=== PATIENT | female | born 1995 | race Caucasian/White ===

== ENCOUNTER → 2018-02-14 15:54 | Outpatient (CLI) | payer OTHER, MEDICAID, SELFPAY ==
[2018-02-14 17:34] LABS: HCG Quantitative /Beta subunit 11462 mIU/mL
== END ==
PROVIDERS: Visit Provider Obstetrics & Gynecology
DX: N91.2 Amenorrhea, unspecified (principal)
CPT/HCPCS: 36415; 84702

== ENCOUNTER → 2018-02-18 08:45 | Outpatient (CLI) | payer OTHER, MEDICAID, SELFPAY ==
--- NOTE | 2018-02-18 08:47 | DI.US.S_ITS ---
PROCEDURE: US OB >= 14 WEEKS FETUS INDICATIONS: INITIAL SIZING AND DATING OUTSIDE/PRIOR DATING DATA: Last menstrual period (LMP): Unknown LMP-based estimated date of delivery (TED): Unknown First dating scan (date and location): 02/18/18. Estimated date of delivery (TED) from first dating scan: 07/09/18. TECHNIQUE: Real-time scanning was performed of the fetus, with image documentation and biometric measurements. COMPARISON: Merged with [facility], OB REEVALUATION, 01/05/2017, 16:12. Merged with [facility], OB COMPLETE 14WKS OR MORE, 12/01/2016, 14:26. Merged with [facility], OB COMPLETE LESS THAN 14 WKS, 10/12/2016, 12:03. Merged with [facility], OB COMPLETE LESS THAN 14 WKS, 04/28/2016, 16:09. FINDINGS: General: A single living intrauterine gestation is present. Presentation: Cephalic Placenta: Placental position is posterior, without previa. Amniotic fluid index: 11.3 cm, normal range is 5-24 cm. heart rate: 149 beats per minute. Maternal cervical canal: 4.6 cm. biometrics: Biparietal diameter: 4.5 cm, 19 weeks 4 days Head circumference: 16.9 cm, 19 weeks 4 days Abdominal circumference: 14.6 cm, 19 weeks 6 days Femur length: 3.3 cm, 20 weeks 3 days Estimated gestational age from initial scan: not applicable. Composite gestational age from present scan: 19 weeks 6 days Estimated weight: 330 g Measurement variability for biometric dating: +/- 7 days from 14 weeks to 15 weeks 6 days gestation, +/- 10 days from 16 weeks to 21 weeks 6 days gestation, +/- 2 weeks from 22 weeks to 27 weeks 6 days gestation, +/- 3 weeks for 28 weeks gestation or later. weight reference: 4500 g or EFW >90/95% is considered macrosomia or large for gestational age. EFW <10% is small for gestational age. EFW 5% or less is considered intra-uterine growth restriction. Anatomic survey: Neuro: Ventricles are non-dilated at less than 10 mm. Cisterna magna is normal at 3-11 mm. Cerebellum is normal in size and morphology. Nuchal skin fold: Normal at less than 6 mm between 14-21 weeks gestational age. Face: Nose and lips, facial profile are normal. Spine: No evidence for spina bifida. Heart: 4-chambered heart is present, with normal ventricular outflow tracts. Diaphragm: Diaphragm is intact. Stomach: Left-sided stomach is present. Kidneys: No hydronephrosis. Normal is less than 5 mm in 2nd trimester, less than 7 mm in 3rd trimester. Cord: 3-vessel cord has orthotopic insertion. Bladder: Normal in size. Extremities: All 4 extremities identified. IMPRESSION: 1. Single live intrauterine at 19 weeks 6 days (sonographic TED 07/09/18). Please correlate with the clinical dates. 2. No anatomic abnormalities are evident. Dictated by: Landen Kelly M.D. on 02/18/2018 at 10:42 Approved by: Landen Kelly M.D. on 02/18/2018 at 10:46
== END ==
PROVIDERS: PCP Family Medicine; Visit Provider Family Medicine
DX: Z34.92 Encounter for supervision of normal pregnancy, unspecified, second trimester (principal); Z3A.19 19 weeks gestation of pregnancy
CPT/HCPCS: 76811

== ENCOUNTER → 2018-03-02 12:00 | Outpatient (CLI) | payer OTHER, MEDICAID, SELFPAY ==
[2018-03-02 12:29] LABS: Add Manual Diff / Slide Review NO; Basophils Percent Auto 1.1 % (0-2); Eosinophils Percent Auto 0.6 % (2-4); Hematocrit 35.2 % (36-46); Hemoglobin 12.2 g/dL (12.0-16.0); Lymphocytes Percent Auto 20.5 % (25-40); Mean Corpuscular HGB Conc 34.5 % (30-36); Mean Corpuscular Hemoglobin 30.4 PG (26-34); Monocytes Percent Auto 6.7 % (3-14); Neutrophils Absolute Auto 5300 /uL (3000-5900); Neutrophils Percent Auto 71.1 % (50-75); Platelet Count 241 X10^3/uL (150-400); Red Cell Distribution Width 13.7 % (11.6-14.8); White Blood Cell Count 7.5 X10^3/uL (4.5-11.0)
[2018-03-02 20:47] LABS: Hepatitis B Surface Antigen NEGATIVE s/c (NEGATIVE)
[2018-03-02 20:57] LABS: HIV 1 and 2 Antibody NEGATIVE (NEGATIVE); Hep C Virus Ab w/Reflex Quant NEGATIVE s/c (NEGATIVE)
[2018-03-03 13:30] LABS: Varicella IgG Antibody < 135.00 Index (< 135.00)
[2018-03-04 15:09] LABS: HSV 2 IGG AB < 0.90 index (< 0.90); HSV1IGG < 0.90 index (< 0.90)
[2018-03-07 15:25] LABS: Rapid Plasma Reagin NON-REACTIVE
== END ==
PROVIDERS: PCP Family Medicine; Visit Provider Family Medicine
DX: Z34.91 Encounter for supervision of normal pregnancy, unspecified, first trimester (principal)
CPT/HCPCS: 36415; 80055; 86695; 86696; 86703; 86787; 86803; 86850; 86900; 86901; 87086

== ENCOUNTER → 2018-04-14 13:45 | Outpatient (CLI) | payer OTHER, MEDICAID, SELFPAY ==
[2018-04-14 15:04] LABS: Hematocrit 32.2 % (36-46); Hemoglobin 11.3 g/dL (12.0-16.0)
[2018-04-14 16:15] LABS: GTT (PREG) 1 Hour PP 50gm Dose 97 mg/dL (76-139)
== END ==
PROVIDERS: PCP Family Medicine; Visit Provider Family Medicine
DX: Z3A.26 26 weeks gestation of pregnancy (principal)
CPT/HCPCS: 36415; 82950; 85014; 85018

== ENCOUNTER → 2018-06-17 09:19 | Outpatient (CLI) | payer OTHER, MEDICAID, SELFPAY ==
[2018-06-18 14:08] LABS: Strep Grp B PCR NEG for Grp B Strep
== END ==
PROVIDERS: PCP Family Medicine; Visit Provider Family Medicine
DX: Z3A.36 36 weeks gestation of pregnancy (principal)
CPT/HCPCS: 87653

== ENCOUNTER 2018-07-13 09:13 | Outpatient (CLI) | payer OTHER, MEDICAID, SELFPAY ==
--- NOTE | 2018-07-13 09:48 | PM.OBTRLD ---
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 Dating based on second trimester US. NST reactive. Follow up next week as scheduled.
--- NOTE | 2018-07-13 09:51 | P.TNLD_ITS ---
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 Dating based on second trimester US. NST reactive. Follow up next week as scheduled.
== END 2018-07-13 09:50 | disposition home or self-care (01) ==
LOC: LABOR 09:19 → OB 07-18 15:44
PROVIDERS: PCP Family Medicine; Visit Provider Family Medicine
DX: Z34.83 Encounter for supervision of other normal pregnancy, third trimester (principal); Z3A.40 40 weeks gestation of pregnancy
CPT/HCPCS: 59025; G0378; G0379

== ENCOUNTER 2018-07-18 13:45 | Inpatient (IN) | payer OTHER, MEDICAID, SELFPAY ==
--- NOTE | 2018-07-18 14:42 | PM.OBHP.1 ---
OB HPI Date/Time Date of admission: 07/18/18 Date Patient Seen: 07/18/18 Time Patient Seen: 17:00 History of Present Condition Chief complaint: Labory/Delivery : 3 Para: 1 Estimated Date of Delivery: 07/09/18 Estimated Gestational Age (weeks): 41w2d Narrative: Moira Pierre is a 23 year old . care initiated at 21 weeks. Patient was not aware she was as she was still her first child who was born March 2017. Ultrasound 02/18/18 showed gestational age of 19 weeks six days with TED of 07/09/18. has been uncomplicated. History of Present care: good care, initiated at week # (Twenty-one), number of visits (10) and pounds weight gain (38) Dating criteria: based on 2nd trimester US only Ultrasounds: normal mid trimester US Obstetrical complications: none Medical complications: none Preadmission Labs Blood type: O (+) positive -: Antibody screen: negative, GBS status: negative, HBsAG: negative, HIV: negative, HSV 1: negative, HSV 2: negative and RPR/VDLR: negative -: Chlamydia screen: not detected and Gonorrhea screen: not detected -: Rubella: immune and Varicella: not immune HCT: 35.2 HCAB: negative 1 hr GTT: 97 Prior (ies) History: 2009 SAB 10 weeks D&C 04/10/2017 49 weeks 7.11 lbs female Evaluation Evaluation Baseline heart rate: 150 Variability: Moderate (11-25) monitor accelerations: Present monitor decelerations: Absent Contraction Frequency (minutes): 6 Uterine Contraction Intensity: Moderate Category of Tracing: I Cervical dilation (cm): 4 Cervical effacement (%): 80 station: -1 Comments: AROM clear fluid PFSH Medical History H/O idiopathic seizure (Chronic) Surgical History S/P dilation and curettage (Acute) Social History marital status: unmarried,living together 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) Smoking Status: Former smoker alcohol intake: never substance use type: does not use and marijuana (past use) Meds Home Medications Medication Instructions Recorded Confirmed Type vit-iron fum-folic ac 1 cap PO QDAY #0 03/12/17 07/18/18 History [Mynatal] Allergies Allergy/AdvReac Type Severity Reaction Status Date / Time No Known Drug Allergies Allergy Verified 07/18/18 15:16 Review of Systems Review of Systems All systems reviewed & are unremarkable except as noted in HPI and below Exam Const General: cooperative and healthy appearing [facility] Head: normal to inspection Ears: hearing grossly normal bilaterally Nose: external nose normal Face and sinus: normal facial exam Mouth: oral mucosae normal Teeth and gingiva: dentition normal Eyes General: appearance normal, both eyes and all related structures Neck Neck: normal visual inspection Resp Effort & Inspection: normal respiratory effort Auscultation: clear to auscultation bilaterally Cardio Rate: regular rate Rhythm: regular rhythm Heart Sounds: S1 normal and S2 normal GI Other: Gravid External Female Exam: external appearance normal Estimated Weight (lbs): 8 Neuro General: alert, awake and oriented x3 Extrem General: no pedal edema Objective Labs Result Diagrams: 07/18/18 15:00 Assessment and Plan (1) 41 weeks gestation of : Current visit: Yes Status: Acute 23-year-old at 41 weeks 2 days of in active labor. GBS negative. Plan - Expected management, anticipate - Patient declines all pain medication
[2018-07-18 15:04] LABS: Add Manual Diff / Slide Review NO; Basophils Percent Auto 0.5 % (0-2); Eosinophils Percent Auto 0.5 % (2-4); Hematocrit 34.9 % (36-46); Hemoglobin 11.9 g/dL (12.0-16.0); Lymphocytes Percent Auto 16.7 % (25-40); Mean Corpuscular HGB Conc 34.2 % (30-36); Mean Corpuscular Hemoglobin 28.4 PG (26-34); Mean Corpuscular Volume 82.9 fL (80-100); Monocytes Percent Auto 8.4 % (3-14); Neutrophils Absolute Auto 8100 /uL (3000-5900); Neutrophils Percent Auto 73.9 % (50-75); Platelet Count 237 X10^3/uL (150-400); Red Cell Distribution Width 14.1 % (11.6-14.8); White Blood Cell Count 10.9 X10^3/uL (4.5-11.0)
[2018-07-18 19:26] VITALS: BP 132/67
--- NOTE | 2018-07-18 19:35 | PM.OBPRVD ---
Delivery date: 07/18/18 Intrapartal events: None Delivery augmentation: rupture of membranes Delivery monitor: external FHT Route of delivery: Laceration description: Superficial (left labial) Estimated blood loss (mL): 200 Anesthesia type: None Narrative: VAGINAL DELIVERY NOTE BRIEF HISTORY: Patient is a 23-year-old G3-now-P2 status post spontaneous vaginal delivery at 41+2 weeks gestation on 07/18/18. TED: 07/09/18 Hospital problems: 41 weeks of STAGE I: Labor Labor onset 07/18/18 at 7:00 a.m. Augmentation: AROM with clear fluid at 16:51 Complete: 19:12 Stage I duration: 12 hours and 12 minutes Analgesia for labor: None Comments: heart tones were category 1 throughout stage 1 with intermittent monitoring. STAGE II: Delivery The second stage of labor lasted 10 minutes. Spontaneous vaginal delivery occurred at 19:22 on 07/18/18. was vertex and EVANGELINA with a nuchal cord which was reduced. Infant was immediately placed on mother's chest. Apgars were 8 and 9. Cord was clamped and cut after 1 minute delay. STAGE III: Placenta/Cord The third stage of labor lasted 6 minutes. Placenta delivered after active management and appeared intact with a three-vessel cord at 19:28. There was one small superficial left labial laceration which was not repaired. Fundus was firm at umbilicus. Hemostasis achieved. IM pitocin bolus given after delivery of placenta. EBL: 200 mL. Needle and sponge counts were correct. The vagina was inspected and no items were left in situ.
--- NOTE | 2018-07-19 09:07 | PM.OBDS.1 ---
Discharge Providers Date of admission: 07/18/18 13:45 Primary care physician: Aleida Gamble DO Discharge provider: Aleida Gamble DO Discharge Date: 07/19/18 Summary Date Patient Seen: 07/19/18 Time Patient Seen: 07:44 Hospital Course: 23-year-old G3-now-P2 1 day after spontaneous vaginal delivery of a viable male . and delivery were uncomplicated. course has been unremarkable. Patient is eating, ambulating and voiding without difficulty. Bleeding is reportedly moderate. Pain well controlled without medication. going very well. Patient will follow up with Dr. Gamble in 6 weeks. Call for fevers, severe pain or bleeding through more than a pad an hour. Exam Temperature 99.3? blood pressure 135/83 pulse 91 respirations 16 General: Awake and alert, no acute distress. HEENT: NCAT, EOMI, moist oral mucosa CV: Regular rate and rhythm, no murmurs, rubs or gallops Lungs: CTAB, no wheezes, rales, or rhonchi Abdomen: Soft, nontender; bowel tones active; uterus firm 1 cm below umbilicus Extremities: Warm, no edema, 2+ pedal pulses bilaterally Discharge Diagnosis (1) 41 weeks gestation of : Status: Acute (2) Spontaneous vaginal delivery: Status: Acute Time Spent with Patient Total time spent providing and/or coordinating discharge services: Objective Labs Result Diagrams: 07/18/18 15:00 Labs: Laboratory Results - last 24 hr 07/18/18 07/18/18 15:00 15:00 WBC 10.9 RBC 4.20 Hgb 11.9 L Hct 34.9 L MCV 82.9 MCH 28.4 MCHC 34.2 RDW 14.1 Plt Count 237 Neut % (Auto) 73.9 Lymph % (Auto) 16.7 L Lat[place] % (Auto) 8.4 Eos % (Auto) 0.5 L Baso % (Auto) 0.5 Neut # (Auto) 8100 H Blood Type O Positive Antibody Screen Negative Discharge Plan Discharge Plan Patient Disposition: Home Discharge Med Rec/Prescriptions Prescriptions: No Action vit-iron fum-folic ac [Mynatal] 1 EACH capsule 1 cap PO QDAY Qty: 0 RF: 0 Follow up/Referrals: Aleida Gamble DO [Primary Care Provider] - 6 Weeks Discharge Data Primary Care Provider: Aleida Gamble Attending Provider: Aleida Gamble Admit Date/Time: 07/18/18 13:45
[2018-07-19 11:28] VITALS: BP 127/53; PULSE 73; TEMP 36.3
== END 2018-07-19 12:45 | disposition home or self-care (01) | DRG 560 ==
PROVIDERS: Admitting Provider Family Medicine; PCP Family Medicine; Visit Provider Family Medicine
DX: O69.81X0 Labor and delivery complicated by cord around neck, without compression, not applicable or unspecified (principal); Z3A.41 41 weeks gestation of pregnancy; Z37.0 Single live birth
CPT/HCPCS: 59050; 59409; 85025; 86850; 86900; 86901; G0379

== ENCOUNTER 2020-10-07 08:00 | Emergency (ER) | payer OTHER, MEDICAID, SELFPAY ==
[2020-10-07 08:09] VITALS: BP 140/70; PULSE 90; RESP 16; TEMP 37.3; O2SAT 100; BMI 24.3
--- NOTE | 2020-10-07 08:14 | ED.FEMALEGU ---
HPI - Female Genitourinary General Chief complaint: Urogenital-Female Stated complaint: PEEING BLOOD,CRAMPING Time Seen by Provider: 10/07/20 08:00 Source: patient Mode of arrival: Ambulatory Limitations: no limitations History of Present Illness HPI Narrative: 25-year-old female nonsmoker with noncontributory medical history presents with a chief complaint of relatively painless hematuria, frequency and urgency with some suprapubic cramping for the past 24 hours. She feels slightly nauseous but denies any vomiting. She has had no fever chills but feels a bit under the weather. Her last period was the beginning of the month and she denies any chance of being as her is fixed. She has had no runny nose sore throat, no chest pain or shortness of breath and is otherwise well and free of complaint. MD Complaint: UTI Onset (ago): hour(s) Location: suprapubic Severity: mild Quality: Aching and Cramping Duration: constant Relieving factors: none Exacerbating factors: urination Urinary symptoms: Frequency, Hematuria and Urgency Patient : No Related Data Home Medications Medication Instructions Recorded Confirmed vit-iron fum-folic ac 1 cap PO QDAY #0 03/12/17 04/26/20 [Mynatal] Previous Rx's Medication Instructions Recorded norethindrone (contraceptive) 0.35 0.35 mg PO DAILY #84 tab 11/05/ mg tablet cefuroxime axetil 500 mg PO BID #14 tab 10/07/20 Allergies Allergy/AdvReac Type Severity Reaction Status Date / Time No Known Drug Allergies Allergy Verified 10/07/20 08:11 Review of Systems Constitutional Constitutional: Denies chills, Denies fatigue, Denies fever(s), Denies frequent falls, Denies lethargy and Denies weakness Eyes Eyes: Denies change in vision, Denies eye discharge, Denies irritation and Denies loss of vision ENT Ears, Nose, Mouth, and Throat: Denies change in voice, Denies dizziness, Denies neck pain, Denies sore throat and Denies throat swelling Cardiovascular Cardiovascular: Denies chest pain, Denies irregular heart rhythm, Denies lightheadedness, Denies palpitations, Denies dyspnea, Denies dyspnea on exertion and Denies orthopnea Respiratory Respiratory: Denies cough, Denies dyspnea, Denies dyspnea on exertion and Denies wheezing Gastrointestinal Gastrointestinal: Denies abdominal pain, Denies change in bowel habits, Denies diarrhea, Denies nausea and Denies vomiting Genitourinary Genitourinary: Reports hematuria and Reports urinary urgency Genitourinary: Reports hematuria and Reports urinary urgency Musculoskeletal Musculoskeletal: Denies neck pain and Denies numbness Integumentary/Breasts Skin/Breast: Denies pruritus, Denies erythema, Denies rash and Denies wounds Neurologic Neurologic: Denies behavioral changes, Denies confusion, Denies dizziness, Denies frequent falls, Denies loss of vision, Denies numbness and Denies weakness Psychiatric Psychiatric: Denies anxiety, Denies behavioral changes, Denies confusion, Denies depression, Denies homicidal ideation and Denies suicidal ideation Endocrine Endocrine: Denies fatigue, Denies flushing and Denies palpitations Hematologic/Lymphatic Hematologic/Lymphatic: Denies easy bruising Allergic/Immunologic Allergic/Immunologic: Denies urticaria, Denies throat swelling and Denies wheezing Patient History Medical History H/O idiopathic seizure Spontaneous vaginal delivery Surgical History S/P dilation and curettage alcohol intake frequency: 0-2 drinks per day Substance Use Type: does not use Exam Narrative Exam Narrative: GEN: AOx3 and in mild distress EYES: Pupils are equal, round, and reactive to light and accommodation. Extraoccular muscles are intact bilaterally. There is no subconjunctival hemorrhage or exudate. CHEST: Lungs are clear to auscultation bilaterally and free of wheezes, rales, or rhonchi. Heart rate is regular rhythm, there are no murmurs, clicks, rubs, or gallops. There is no chest wall tenderness. ABD: Abdomen is soft and minimally tender in suprapubic region. There is no guarding or rebound. Bowel sounds are normal in all 4 quadrants. There is no mass or organomegaly. EXT: Full painless ROM of all extremities with no loss of sensation or strength. BACK: No CVA tenderness SKIN: Warm, pink, and dry. No erythema or rash Initial Vital Signs Initial Vital Signs: Vital Signs Temperature 99.2 F 10/07/20 08:09 Pulse Rate 90 10/07/20 08:09 Respiratory Rate 16 10/07/20 08:09 Blood Pressure 140/70 10/07/20 08:09 Pulse Oximetry 100 10/07/20 08:09 Course Vital Signs Vital signs: Vital Signs - 8 hr 10/07/20 08:09 Temperature 99.2 F Pulse Rate 90 Respiratory Rate 16 Blood Pressure 140/70 Pulse Oximetry 100 MDM - Female Genitourinary MDM Narrative Medical decision making narrative: Minimal pain with hematuria. Urine POC notes Leuks+++. Kidney stone or other etiology considered, but thought unlikely. Patient has no fever, but some nausea and low back discomfort so decision was made to extend coverage for possible early pyelo. Patient given return precautions and had questions answered to her apparent satisfaction. Discharge Plan Departure Patient Disposition: Home Clinical Impression: UTI (urinary tract infection) Qualifiers: Urinary tract infection type: acute pyelonephritis Qualified Code(s): N10 - Acute pyelonephritis Instructions: DI for Urinary Tract Infection (UTI) Activity Restrictions/Additional Instructions: *You have been diagnosed with [urinary infection, likely early kidney infection] *What to do: *Take medications as directed: Prescription sent to [facility] in [place] *Follow up with your primary care provider in 2-3 days, call for an appointment. Let them know you were seen in the Emergency Department and that we ask that you be seen in follow up *Return to ER if you should have any new, worsening or concerning symptoms, such as [fever greater than 101 F, shaking chills, persistent vomiting, worsening pain or other bothersome symptoms] Prescriptions: New cefuroxime axetil 500 mg tablet 500 mg PO BID Qty: 14 RF: 0 No Action vit-iron fum-folic ac [Mynatal] 1 EACH capsule 1 cap PO QDAY Qty: 0 RF: 0 norethindrone (contraceptive) 0.35 mg tablet 0.35 mg PO DAILY Qty: 84 RF: 3 Referrals: Aleida Gamble DO [Primary Care Provider] -
[2020-10-07 08:46] LABS: Bacteria Urine Moderate (10-30); Culture Indicated Urine Specimen Cultured; RBC Urine 10-30/HPF (0-5/HPF); Renal Epithelial Cells Urine 0-1/HPF (0-1/HPF); Squamous Epithelial Cell Urine 1-5 /HPF (0-5/HPF); Transitional Epi Cells Urine 0-1/HPF (0-5/HPF); Urine Comments CLUE CELLS PRESENT; WBC Urine >100/HPF (0-5/HPF)
== END 2020-10-07 08:21 | disposition home or self-care (01) ==
LOC: ED 08:17
PROVIDERS: Emergency Provider Emergency Medicine; PCP Family Medicine
DX: N10 Acute pyelonephritis (principal); R10.2 Pelvic and perineal pain; R11.0 Nausea
CPT/HCPCS: 81003; 81015; 81025; 87086; 99282

== ENCOUNTER → 2020-12-21 14:44 | Outpatient (CLI) | payer OTHER, MEDICAID, SELFPAY | PROVIDERS: PCP Family Medicine; Visit Provider Physician Assistant | DX: N34.3 Urethral syndrome, unspecified (principal) | CPT/HCPCS: 87077; 87086; 87186 ==

== ENCOUNTER → 2021-01-02 11:07 | Outpatient (CLI) | payer OTHER, MEDICAID, SELFPAY | PROVIDERS: PCP Family Medicine; Visit Provider Physician Assistant | DX: N89.8 Other specified noninflammatory disorders of vagina (principal) | CPT/HCPCS: 87210 ==

== ENCOUNTER → 2021-04-17 09:30 | Outpatient (CLI) | payer OTHER, MEDICAID, SELFPAY | PROVIDERS: PCP Family Medicine; Referring Provider Nurse Practitioner; Visit Provider Nurse Practitioner | DX: N39.0 Urinary tract infection, site not specified (principal) | CPT/HCPCS: 81002; 87077; 87086; 87186 ==

== ENCOUNTER → 2021-04-23 11:03 | Outpatient (CLI) | payer OTHER, MEDICAID, SELFPAY ==
--- NOTE | 2021-04-23 11:04 | DI.US.S_ITS ---
PROCEDURE: US RENAL COMPLETE INDICATIONS: HEMATURIA TECHNIQUE: Real-time scanning was performed of the kidneys and bladder, with image documentation. COMPARISON: None. FINDINGS: Kidneys: Kidneys are normal in size. Right kidney measures 10.7 cm long; left kidney measures 12 cm long. Right renal cortical thickness is 1.1 cm; left renal cortical thickness is 1.2 cm. Renal cortical echotexture is normal. No hydronephrosis or nephrolithiasis. No suspicious solid mass lesions. Bladder: Pre-void bladder volume is 237 mL. Post-void residual is 11 mL. Pre-void images demonstrate no intraluminal masses or stones. On pre-void images, bilateral ureteral jets are noted with color Doppler interrogation. Small amount of echogenic debris within the urinary bladder. Miscellaneous: No free pelvic fluid. IMPRESSION: 1. No hydronephrosis. 2. Small amount of debris within the urinary bladder, possibly indicating hematuria or urinary tract infection. Dictated by: Ciro Alves M.D. on 04/23/2021 at 14:55 Approved by: Ciro Alves M.D. on 04/23/2021 at 14:56
== END ==
PROVIDERS: PCP Family Medicine; Referring Provider Family Medicine; Visit Provider Family Medicine
DX: R31.9 Hematuria, unspecified (principal)
CPT/HCPCS: 76770

== ENCOUNTER → 2021-05-20 15:24 | Outpatient (CLI) | payer OTHER, MEDICAID, SELFPAY | PROVIDERS: PCP Family Medicine; Visit Provider Family Medicine | DX: R30.0 Dysuria (principal); R31.9 Hematuria, unspecified | CPT/HCPCS: 81002; 87077; 87086; 87186 ==

== ENCOUNTER → 2021-05-30 12:47 | Outpatient (CLI) | payer OTHER, MEDICAID, SELFPAY ==
[2021-05-30 14:04] LABS: COVID19 -Nasal RAPID Negative (Negative)
== END ==
PROVIDERS: PCP Family Medicine; Referring Provider Internal Medicine; Visit Provider Internal Medicine
DX: Z20.822 Contact with and (suspected) exposure to COVID-19 (principal)
CPT/HCPCS: 87635; C9803

== ENCOUNTER → 2021-05-30 12:50 | Outpatient (CLI) | payer OTHER, MEDICAID, SELFPAY ==
--- NOTE | 2021-06-03 08:06 | PM.PFT.1 ---
Pulmonary Function Test Referral & Results Date Patient Seen: 05/30/21 Requesting provider: Aleida Gamble Results: The spirometry demonstrates an FVC of 4.44 L which is 117% of predicted. The FEV1 was measured at 3.58 L which is 111% of predicted. The FEV1/FVC ratio was 81 which is 94% of predicted. Following the administration of bronchodilator there was no appreciable change to above normal numbers Lung volumes show an SVC of 4.33 L which is 117% of predicted. The diffusing capacity was measured at 29.92 which is 123% of predicted. The maximum voluntary ventilation was normal Interpretation: This study demonstrates normal pulmonary function
== END ==
PROVIDERS: PCP Family Medicine; Referring Provider Family Medicine; Visit Provider Family Medicine
DX: R06.02 Shortness of breath (principal); J98.8 Other specified respiratory disorders; Z87.891 Personal history of nicotine dependence; Z20.822 Contact with and (suspected) exposure to COVID-19
CPT/HCPCS: 87635; 94060; 94726; 94729; C9803

== ENCOUNTER → 2022-10-20 17:11 | Outpatient (CLI) | payer OTHER, MEDICAID, SELFPAY ==
[2022-10-20 18:09] LABS: Add Manual Diff / Slide Review NO; Basophils Absolute Auto 0 /uL (0-100); Basophils Percent Auto 0.5 % (0-2); Eosinophils Absolute Auto 100 /uL (0-450); Eosinophils Percent Auto 1.2 % (2-4); Hematocrit 38.5 % (36-46); Hemoglobin 13.2 g/dL (12.0-16.0); Lymphocytes Absolute Auto 2200 /uL (1100-4500); Lymphocytes Percent Auto 36.6 % (25-40); Mean Corpuscular HGB Conc 34.4 % (30-36); Mean Corpuscular Hemoglobin 30.1 PG (26-34); Mean Corpuscular Volume 87.7 fL (80-100); Monocytes Absolute Auto 500 /uL (0-900); Monocytes Percent Auto 7.5 % (3-14); Neutrophils Absolute Auto 3300 /uL (1500-7000); Neutrophils Percent Auto 54.2 % (50-75); Platelet Count 248 X10^3/uL (150-400); Red Cell Distribution Width 13.4 % (11.6-14.8); White Blood Cell Count 6.1 X10^3/uL (4.5-11.0)
[2022-10-20 18:27] LABS: HEMOLYSIS < 15 (0-50); Iron 81 ug/dL (37-170)
[2022-10-20 18:30] LABS: Alanine Aminotransferase 26 IU/L (<35); Albumin 4.7 g/dL (3.5-5.0); Albumin Globulin Ratio 1.7 (1.0-2.8); Alkaline Phosphatase 60 U/L (38-126); Aspartate Aminotransferase 25 IU/L (14-36); BUN Creatinine Ratio 19.8 (6-22); Bilirubin Total 0.3 mg/dL (0.2-1.3); Blood Urea Nitrogen 16 mg/dL (7-17); Calcium 9.2 mg/dL (8.4-10.2); Carbon Dioxide 28 mmol/L (22-32); Chloride 99 mmol/L (98-107); Estimated Glomerular Filt Rate > 60 mL/min (>60); Globulin 2.7 g/dL (1.7-4.1); Glucose 86 mg/dL (70-100); HEMOLYSIS < 15 (0-50); Potassium 4.1 mmol/L (3.4-5.1); Sodium 138 mmol/L (137-145); Total Protein 7.4 g/dL (6.3-8.2)
[2022-10-20 18:40] LABS: Percent Iron Saturation 25 % (15-50); Total Iron Binding Capacity 328 ug/dL (265-497); Transferrin 253 mg/dL (206-381)
[2022-10-20 18:48] LABS: Erythrocyte Sedimentation Rate 10 MM/HR (0-20)
[2022-10-20 18:58] LABS: TSH w/ Reflex to FT4 2.93 uIU/mL (0.47-4.68)
[2022-10-20 19:03] LABS: Ferritin 48 ng/mL (6-137)
== END ==
PROVIDERS: PCP Family Medicine; Referring Provider Physician Assistant; Visit Provider Physician Assistant
DX: D64.9 Anemia, unspecified (principal); M25.50 Pain in unspecified joint; R53.83 Other fatigue
CPT/HCPCS: 36415; 80053; 82728; 83540; 83550; 84443; 85025; 85651

== ENCOUNTER → 2022-10-20 17:54 | Outpatient (CLI) | payer OTHER, MEDICAID, SELFPAY ==
--- NOTE | 2022-10-20 17:58 | DI.RAD.S_ITS ---
PROCEDURE: XR CERVICAL SPINE 2V OR 3V INDICATIONS: Neck pain with numbness and tingling TECHNIQUE: 3 view(s) of the cervical spine were acquired. COMPARISON: None. FINDINGS: Bones: No fractures or dislocations to the T1 level. The lateral masses of C1 appear intact on the odontoid view. No suspicious bony lesions. Soft tissues: No prevertebral soft tissue swelling. IMPRESSION: Unremarkable radiographic examination of cervical spine. Dictated by: Doug Marks M.D. on 10/20/2022 at 18:16 Approved by: Doug Marks M.D. on 10/20/2022 at 18:16
== END ==
PROVIDERS: PCP Family Medicine; Referring Provider Physician Assistant; Visit Provider Physician Assistant
DX: M54.2 Cervicalgia (principal); D64.9 Anemia, unspecified; R53.83 Other fatigue; M25.50 Pain in unspecified joint
CPT/HCPCS: 36415; 72040; 80053; 82728; 83540; 83550; 84443; 85025; 85651

== ENCOUNTER → 2022-10-22 22:06 | Outpatient (ROUT) | payer OTHER, MEDICAID, SELFPAY | PROVIDERS: PCP Family Medicine; Visit Provider Physician Assistant | DX: B35.1 Tinea unguium (principal) | CPT/HCPCS: 87102; 87107 ==

== ENCOUNTER → 2023-02-26 19:06 | Outpatient (CLI) | payer OTHER, MEDICAID, SELFPAY ==
--- NOTE | 2023-02-26 19:07 | DI.MRI.S_ITS ---
PROCEDURE: MR CERVICAL SPINE WO CON INDICATIONS: Neck pain; Radiculopathy RUE; positive Lhermitte's sign TECHNIQUE: Noncontrast sagittal T1 spin echo and T2 fast spin echo, sagittal STIR, foraminal oblique sagittal T2 fast spin echo, and axial gradient echo or T2 fast spin echo through the cervical spine. COMPARISON: None. FINDINGS: Image quality: Excellent. Alignment and Curvature: Straightening of the normal cervical lordosis. No spondylolisthesis. Bone Marrow: Marrow demonstrates normal overall signal. Spinal Cord: There is diffuse patchy T2 signal abnormality throughout the visualized cervical and upper thoracic spinal cord. Paraspinous Soft Tissues: No paravertebral masses. Prevertebral soft tissues are normal in thickness. C2-C3: Normal appearance. C3-C4: Mild facet and uncovertebral arthropathy resulting in mild left neural foraminal narrowing. C4-C5: Normal appearance. C5-C6: Normal appearance. C6-C7: Normal appearance. C7-T1: Normal appearance. IMPRESSION: 1. There is diffuse patchy T2 signal abnormality throughout the visualized cervical and upper thoracic spinal cord. Findings are concerning for a demyelinating process. Tumor is felt to be less likely. Recommend further evaluation with MRI of the brain, cervical and thoracic spine with and without contrast to further evaluate a demyelinating process and exclude infiltrating tumor. 2. Mild degenerative changes of the cervical spine without significant central canal or neural foraminal narrowing. Dictated by: Silvestre Hernandez M.D. on 03/01/2023 at 8:26 Approved by: Silvestre Hernandez M.D. on 03/01/2023 at 8:37
== END ==
PROVIDERS: PCP Family Medicine; Referring Provider Physician Assistant; Visit Provider Physician Assistant
DX: R29.818 Other symptoms and signs involving the nervous system (principal); M54.2 Cervicalgia; R20.0 Anesthesia of skin
CPT/HCPCS: 72141

== ENCOUNTER → 2023-03-08 16:14 | Outpatient (CLI) | payer OTHER, MEDICAID, SELFPAY ==
--- NOTE | 2023-03-08 16:16 | DI.MRI.S_ITS ---
PROCEDURE: MR HEAD/BRAIN WO/W CON INDICATIONS: Abnormal MR C-spine TECHNIQUE: Noncontrast axial T1 spin echo, axial T2 fast spin echo, sagittal and axial FLAIR, coronal T2 fast spin echo, axial gradient echo, axial diffusion and ADC through the brain. After the administration of contrast, axial and coronal and sagittal 3D VIBE or T1 spin echo with fat saturation through the brain. COMPARISON: [facility], MR, MR CERVICAL SPINE WO/W CON, 03/08/2023, 16:19. [facility], MR, MR CERVICAL SPINE WO CON, 02/26/2023, 19:40. FINDINGS: Image quality: Excellent. CSF Spaces: Basal cisterns are patent. No extra-axial fluid collections. Ventricles are normal in size and shape. Brain: No midline shift. No intracranial bleeds or masses. No abnormal intracranial enhancement. There are several small punctate areas of periventricular and subcortical white matter hyperintensities. Additional lesion is noted the margin of the corpus callosum. The brainstem appears normal. Diffusion-weighted images demonstrate no acute ischemic insults. No chronic ischemic insults. Normal intravascular flow voids are present. Skull and face: Calvarial marrow is normal in signal. Orbits appear normal. Sinuses: Sinuses and mastoids appear clear. IMPRESSION: Several punctate areas of periventricular/subcortical white matter hyperintensity as described above without enhancement or restricted diffusion. These are overall nonspecific. However, given cervical spine findings, demyelinating disease should be considered. Dictated by: Pily Campos M.D. on 03/09/2023 at 9:03 Approved by: Pily Campos M.D. on 03/09/2023 at 9:05
--- NOTE | 2023-03-08 16:16 | DI.MRI.S_ITS ---
PROCEDURE: MR THORACIC SPINE WO/W CON INDICATIONS: Abnormal MR C-spine TECHNIQUE: Noncontrast sagittal T1 spin echo and T2 fast spin echo, sagittal STIR, axial T1 and T2 fast spin echo through the thoracic spine. After the administration of contrast, axial and sagittal T1 spin echo with fat saturation through the thoracic spine. COMPARISON: [facility], MR, MR HEAD/BRAIN WO/W CON, 03/08/2023, 16:19. [facility], MR, MR CERVICAL SPINE WO/W CON, 03/08/2023, 16:19. [facility], MR, MR CERVICAL SPINE WO CON, 02/26/2023, 19:40. FINDINGS: Image quality: Excellent. Alignment and curvature: There is normal bony alignment. Marrow: Marrow is of normal overall signal. No acute vertebral body compression fractures. Spinal cord: Visualized spinal cord is of normal size. Focus abnormal cord signal is identified at T2 measuring approximately 1 cm. Punctate focus is noted at T4. There is no abnormal enhancement. Paraspinous soft tissues: No paravertebral masses or abnormal enhancement. Miscellaneous: Central canal and foramina appear widely patent at all scanned levels. IMPRESSION: Foci of abnormal signal within the thoracic cord as above. Given cervical spine and brain findings, demyelinating disease should be considered. Dictated by: Pily Campos M.D. on 03/09/2023 at 10:17 Approved by: Pily Campos M.D. on 03/09/2023 at 10:20
--- NOTE | 2023-03-08 16:16 | DI.MRI.S_ITS ---
PROCEDURE: MR CERVICAL SPINE WO/W CON COMPARISON: None. INDICATIONS: Abnormal MR C-spine FINDINGS: As identified on prior exam, multifocal areas of increased signal intensity are noted the intramedullary portion of the spinal cord throughout the cervical spine. The largest focus is present at the level of C6 measuring 1.2 cm craniocaudal. There is no visualized enhancement. IMPRESSION: Multifocal spinal lesions which are nonenhancing as above. Findings remain concerning for demyelinating disease. Dictated by: Pily Campos M.D. on 03/09/2023 at 9:50 Approved by: Pily Campos M.D. on 03/09/2023 at 10:12
== END ==
PROVIDERS: PCP Family Medicine; Referring Provider Physician Assistant; Visit Provider Physician Assistant
DX: G37.9 Demyelinating disease of central nervous system, unspecified (principal); R93.7 Abnormal findings on diagnostic imaging of other parts of musculoskeletal system
CPT/HCPCS: 70553; 72156; 72157; A9579

== ENCOUNTER → 2023-03-26 10:55 | Outpatient (CLI) | payer OTHER, MEDICAID, SELFPAY ==
[2023-03-26 11:27] LABS: INR 1.2 (0.9-1.3); Prothrombin Time 13.5 SECONDS (10.1-12.7)
[2023-03-26 11:48] LABS: HCG Quantitative /Beta subunit < 2.4 mIU/mL
== END ==
PROVIDERS: PCP Family Medicine; Referring Provider Physician Assistant; Visit Provider Physician Assistant
DX: Z01.812 Encounter for preprocedural laboratory examination (principal); Z01.818 Encounter for other preprocedural examination
CPT/HCPCS: 36415; 84702; 85610

== ENCOUNTER 2023-03-26 12:14 | Outpatient (CLI) | payer OTHER, MEDICAID, SELFPAY ==
--- NOTE | 2023-03-26 12:15 | DI.RAD.S_ITS ---
PROCEDURE: FL GUIDED LUMBAR PUNCTURE LP INDICATIONS: MS profile, to include protein COMPARISON: None. TECHNIQUE: The indications, alternatives, benefits, risks, and complications were explained to the patient. Written informed consent was obtained and placed in the chart. The patient was placed in a prone position on the fluoroscopy table, and a level was chosen for percutaneous access under fluoroscopic guidance. The site was prepped and draped in a sterile fashion. After local anaesthetic, a spinal needle was then used to enter the intrathecal space, with return of cerebrospinal fluid. After obtaining sufficient fluid, the needle was then withdrawn, and a bandage applied to the puncture site. FINDINGS: Puncture level: L3-4 Needle: Spinal needle. Opening pressure: Not requested. CSF volume and description: 16 cc of clear fluid. Medications: 1% lidocaine for anaesthesia. Complications: None. Laboratories: As ordered by referring clinician. IMPRESSION: Successful fluoroscopically guided lumbar puncture. Dictated by: Doug Marks M.D. on 03/26/2023 at 15:18 Approved by: Doug Marks M.D. on 03/26/2023 at 15:19
[2023-03-26 12:30] VITALS: BP 119/73; PULSE 80; RESP 16; TEMP 36.6; O2SAT 100
[2023-03-26 13:57] VITALS: BP 119/73; PULSE 80; RESP 16; TEMP 36.2; O2SAT 100
[2023-03-26 14:37] VITALS: BP 108/66; PULSE 83; RESP 16; TEMP 36.7; O2SAT 100
[2023-03-26] MEDS: LIDOCAINE 1% MDV 30 ML INJ (14:57)
== END 2023-03-26 14:48 | disposition home or self-care (01) ==
PROVIDERS: PCP Family Medicine; Referring Provider Physician Assistant; Visit Provider Physician Assistant
PROC: 009U3ZZ Drainage of Spinal Canal, Percutaneous Approach (ICD-10-PCS; principal; 2023-03-26 13:00)
DX: G37.9 Demyelinating disease of central nervous system, unspecified (principal); Z01.812 Encounter for preprocedural laboratory examination; Z01.818 Encounter for other preprocedural examination
CPT/HCPCS: 36415; 62328; 84702; 85610

== ENCOUNTER → 2023-09-01 08:45 | Outpatient (CLI) | payer OTHER, MEDICAID, SELFPAY ==
[2023-09-01 10:26] LABS: Alanine Aminotransferase 142 IU/L (<35); Albumin 4.5 g/dL (3.5-5.0); Albumin Globulin Ratio 1.6 (1.0-2.8); Alkaline Phosphatase 45 U/L (38-126); Aspartate Aminotransferase 59 IU/L (14-36); BUN Creatinine Ratio 18.2 (6-22); Bilirubin Total 0.9 mg/dL (0.2-1.3); Blood Urea Nitrogen 12 mg/dL (7-17); Calcium 9.7 mg/dL (8.4-10.2); Carbon Dioxide 27 mmol/L (22-32); Chloride 102 mmol/L (98-107); Estimated Glomerular Filt Rate > 60 mL/min (>60); Globulin 2.8 g/dL (1.7-4.1); Glucose 88 mg/dL (70-100); HEMOLYSIS < 15 (0-50); Potassium 4.1 mmol/L (3.4-5.1); Sodium 137 mmol/L (137-145); Total Protein 7.3 g/dL (6.3-8.2)
== END ==
PROVIDERS: PCP Family Medicine; Referring Provider Family Medicine; Visit Provider Family Medicine
DX: R29.818 Other symptoms and signs involving the nervous system (principal); G37.9 Demyelinating disease of central nervous system, unspecified
CPT/HCPCS: 36415; 80053

== ENCOUNTER → 2023-09-14 16:26 | Outpatient (CLI) | payer OTHER, MEDICAID, SELFPAY ==
--- NOTE | 2023-09-14 16:27 | DI.US.S_ITS ---
PROCEDURE: US ABDOMEN LIMITED INDICATIONS: R upper quad discomfort elevated LFT TECHNIQUE: Real-time focused scanning was performed of the abdomen, with image documentation. COMPARISON: None. FINDINGS: The liver is normal in size and demonstrates no suspicious lesions. No findings of gallstones or sludge are seen. The gallbladder wall is not thickened, measuring 3 mm or less. No specific pericholecystic fluid is seen. The sonographic Longo sign is negative. There is no biliary dilatation, the common bile duct measures 5 mm. No significant pancreatic abnormality is seen on these images. The visualized right kidney is unremarkable, without hydronephrosis. IMPRESSION: The gallbladder demonstrates a normal sonographic appearance. No biliary dilatation is seen. Dictated by: Mervin Glaser M.D. on 09/14/2023 at 17:58 Approved by: Mervin Glaser M.D. on 09/14/2023 at 17:59
== END ==
PROVIDERS: PCP Family Medicine; Referring Provider Family Medicine; Visit Provider Family Medicine
DX: R79.89 Other specified abnormal findings of blood chemistry (principal)
CPT/HCPCS: 76705

== ENCOUNTER → 2023-09-23 11:06 | Outpatient (CLI) | payer OTHER, MEDICAID, SELFPAY ==
[2023-09-23 12:09] LABS: Add Manual Diff / Slide Review NO; Basophils Absolute Auto 0 /uL (0-100); Basophils Percent Auto 0.3 % (0-2); Eosinophils Absolute Auto 100 /uL (0-450); Eosinophils Percent Auto 0.8 % (2-4); Hematocrit 37.4 % (36-46); Hemoglobin 12.7 g/dL (12.0-16.0); Lymphocytes Absolute Auto 3300 /uL (1100-4500); Lymphocytes Percent Auto 27.1 % (25-40); Mean Corpuscular HGB Conc 33.9 % (30-36); Mean Corpuscular Hemoglobin 28.6 PG (26-34); Mean Corpuscular Volume 84.4 fL (80-100); Monocytes Absolute Auto 600 /uL (0-900); Monocytes Percent Auto 4.7 % (3-14); Neutrophils Absolute Auto 8100 /uL (1500-7000); Neutrophils Percent Auto 67.1 % (50-75); Platelet Count 220 X10^3/uL (150-400); Red Blood Cell Count 4.43 X10^6/uL (4.0-5.2); Red Cell Distribution Width 13.7 % (11.6-14.8); White Blood Cell Count 12.1 X10^3/uL (4.5-11.0)
[2023-09-23 12:22] LABS: Alanine Aminotransferase 76 IU/L (<35); Albumin 4.5 g/dL (3.5-5.0); Albumin Globulin Ratio 1.6 (1.0-2.8); Alkaline Phosphatase 53 U/L (38-126); Aspartate Aminotransferase 38 IU/L (14-36); BUN Creatinine Ratio 26.2 (6-22); Bilirubin Total 0.7 mg/dL (0.2-1.3); Blood Urea Nitrogen 17 mg/dL (7-17); Calcium 9.9 mg/dL (8.4-10.2); Carbon Dioxide 25 mmol/L (22-32); Chloride 103 mmol/L (98-107); Estimated Glomerular Filt Rate > 60 mL/min (>60); Globulin 2.8 g/dL (1.7-4.1); Glucose 71 mg/dL (70-100); HEMOLYSIS < 15 (0-50); Potassium 4.3 mmol/L (3.4-5.1); Sodium 137 mmol/L (137-145); Total Protein 7.3 g/dL (6.3-8.2)
[2023-09-23 19:56] LABS: Hep C Virus Ab w/Reflex Quant NEGATIVE s/c (NEGATIVE)
[2023-09-24 06:09] LABS: HBsAg Screen Negative (Negative); Hepatitis A Antibody IgM Negative (Negative); Hepatitis B Core Antibody IgM Negative (Negative); Hepatitis C Antibody Non Reactive (Non Reactive)
== END ==
PROVIDERS: PCP Family Medicine; Referring Provider Family Medicine; Visit Provider Family Medicine
DX: R79.89 Other specified abnormal findings of blood chemistry (principal); G35 Multiple sclerosis
CPT/HCPCS: 36415; 80053; 80074; 85025; 86803